=== PATIENT | female | born 2000 | race American Indian/Alaskan Native ===

== ENCOUNTER 2019-08-19 14:46 | Emergency (ER) | payer SELFPAY ==
[2019-08-19 15:14] VITALS: BP 106/68
--- NOTE | 2019-08-19 17:05 | Emergency Department Report ---
Chief Complaint: Sore Throat Stated Complaint: CHECK UP Time Seen by Provider: 08/19/19 17:00 - HPI History of Present Illness: pt presents with "discomfort in her tonsils" she states that it feels like a burning sensation since 5 days ago. states she occasionally gets a tingling in her right arm. she denies any CP, SOB, no n/v/d, no fever, no leg swelling, no difficulty swallowing, no numbness, no weakness, no bowel or bladder incontinence, no vision changes, BORREGO, gait disturbance, speech disturbance. no pMHx. no allergies to meds. no sick contacts, no recent travel, no hormone use. Vitals are stable On exam: Non toxic appearing, no acute distress atraumatic, normocephalic normal appearance of the eyes, PERRL, EOMI, no periorbital edema or ecchymosis moist mucus membranes, no tonsillar hypertrophy or exudates, uvula is midline, no uvular edema or deviation, no posterior oropharynx erythema, normal oropharynx regular heart rate and rhythm, no gallops, no rubs, no murmurs breath sounds are clear bilaterally, no w/r/r A&O x4, no focal neuro deficit, cranial nerves II through XII intact, normal [id number], normal irritation, 5 out of 5 muscle strength in the bilateral upper extremity lower extremity, sensation intact throughout skin is warm, dry, intact No abnormality on physical exam No signs of tonsillitis or peritonsillar abscess No neuro deficits on exam No clinical signs of dehydration Discussed GERD treatment with patient advised pt may use pepcid over the counter. may use maalox over the counter. follow up with a primary care doctor. follow up with a neurologist. return to the emergency room for any new or worsening symptoms. Medical screening examination performed there is no threat to life or limb at this time Patient referred to the appropriate resources Discussed strict return precautions - Exam Vital Signs: Vital Signs 08/19/19 15:13 Temperature 98.5 F Pulse Rate 59 L Respiratory 16 Rate Blood Pressure 106/68 [Right] O2 Sat by Pulse 100 Oximetry MSE screening note: Focused history and physical exam performed. ED Disposition for MSE Clinical Impression: Tingling of right upper extremity GERD (gastroesophageal reflux disease) Qualifiers: Esophagitis presence: without esophagitis Qualified Code(s): K21.9 - Gastro- esophageal reflux disease without esophagitis Disposition: MED SCREENING EXAM-LEFT Is pt being admited?: No Does the pt Need Aspirin: No Condition: Stable Instructions: Diet for Ulcers and Gastritis (ED), Gastroesophageal Reflux Disease (ED), Paresthesia (ED) Additional Instructions: may use pepcid over the counter. may use maalox over the counter. follow up with a primary care doctor. follow up with a neurologist. return to the emergency room for any new or worsening symptoms. Referrals: DARYL MILLER MD [Staff Physician] - 3-5 Days [facility] [Provider Group] - 3-5 Days [facility] [Outside] - 3-5 Days EDUARDA MARIE MD [Referring] - 3-5 Days Time of Disposition: 17:06 Print Language: NEPALI
== END 2019-08-19 18:13 | disposition left against medical advice (07) ==
LOC: ED 14:46
DX: K21.9 Gastro-esophageal reflux disease without esophagitis (principal); R20.2 Paresthesia of skin
CPT/HCPCS: 99281